=== PATIENT | male | born 1955 | race Caucasian/White ===

== ENCOUNTER 2025-09-14 14:22 | Emergency (ER) | payer OTHER ==
[~2025-09-14] VITALS: Ht 170.2 cm; Wt 77.1 kg
[2025-09-14] MEDS ORDERED: Fluorescein Sod 1MG Opth Strips LEFTEYE ONE (17:15)
[2025-09-14] MEDS ORDERED: Proparacaine 0.5% Opth Soln 15 ML BTL LEFTEYE ONE (17:15)
[2025-09-14] MEDS ORDERED: SULTRIDS PO ×2 (21:31→21:54)
[2025-09-14] MEDS ORDERED: Trimethoprim/Sulfamethoxazole DS Tab PO ONE (21:35)
== END 2025-09-14 22:03 | disposition home or self-care (01) ==
LOC: ER 14:22
DX: S01.112A Laceration without foreign body of left eyelid and periocular area, initial encounter (principal); W22.8XXA Striking against or struck by other objects, initial encounter
CPT/HCPCS: 12014; 70487; 99284-25; A9270; A9270-GY; Q9967